=== PATIENT | male | born 1960 | race Caucasian/White ===

== ENCOUNTER → 2020-06-18 13:43 | Outpatient (CLI) | payer OTHER, SELFPAY ==
--- NOTE | 2020-06-18 | DI.MRI.S_ITS ---
PROCEDURE: MR WRIST RT WO/W CON INDICATIONS: Right wrist pain TECHNIQUE: Noncontrast coronal proton density fast spin echo and T2 fast spin echo with fat saturation; coronal 3-D gradient echo, axial T1 spin echo and T2 fast spin echo with fat saturation, axial T1 spin echo with fat saturation, sagittal T1 spin echo through the wrist. Post-contrast axial, coronal, and sagittal T1 spin echo with fat saturation through the wrist. COMPARISON: Outside Film, CR, XR WRIST 1 OR 2 VIEWS BILATERAL, 03/02/2020, 12:52. FINDINGS: Image quality: Excellent. No discrete fracture identified. There is lunate sclerosis and mild marrow edema. No articular surface collapse is seen. Widened appearance of the scapholunate interval measuring 7 mm. The scapholunate ligament is not well seen. Diffuse carpal and distal radioulnar joint degeneration. There is mild extensor digitorum, extensor carpi radialis longus and brevis tenosynovitis. Diffuse carpal synovitis. There is also distal radial ulnar joint synovitis. No discrete marrow signal changes to suggest erosion identified. Amorphous intrasubstance signal change involving the central disc of the TFCC however no discrete fluid signal intensity defect. IMPRESSION: No specific marrow signal changes to suggest erosions identified however there is diffuse carpal and distal radial ulnar joint synovitis. Mild extensor digitorum, extensor carpi radialis longus and brevis tenosynovitis Diffuse lunate sclerosis and mild marrow edema, which is suspicious for Kienbock disease. No definite articular surface collapse although continued radiographic surveillance could be performed. Dictated by: Blayne Murillo M.D. on 06/18/2020 at 16:46 Approved by: Blayne Murillo M.D. on 06/18/2020 at 16:56
--- NOTE | 2020-06-18 | DI.MRI.S_ITS ---
PROCEDURE: MR WRIST LT WO/W CON INDICATIONS: Left wrist pain TECHNIQUE: Noncontrast coronal proton density fast spin echo and T2 fast spin echo with fat saturation; coronal 3-D gradient echo, axial T1 spin echo and T2 fast spin echo with fat saturation, axial T1 spin echo with fat saturation, sagittal T1 spin echo through the wrist. Post-contrast axial, coronal, and sagittal T1 spin echo with fat saturation through the wrist. COMPARISON: [facility], MR, MR WRIST RT WO/W CON, 06/18/2020, 13:57. FINDINGS: Image quality: Excellent. No definite specific marrow changes to suggest erosion identified. There is diffuse lunate sclerosis and marrow signal change which is suspicious for Kienbock disease. Scapholunate ligament is not well seen and probably ruptured. No discrete fracture. There is borderline ulnar translocation of the carpus. There is prominent diffuse carpal and distal radioulnar joint enhancing synovitis. No definite tenosynovitis. Triangular fibrocartilage complex is not well seen and likely reflects degenerative tear. There is full-thickness loss of the distal ulnar and radial cartilage as well as the proximal lunate articular cartilage. IMPRESSION: No specific marrow signal changes to suggest erosions. Diffuse enhancing carpal and distal radioulnar joint synovitis. Lunate sclerosis, T2 hyperintensity/marrow edema which suggests Kienbock disease. Scapholunate ligament rupture Ill-defined macerated (likely degenerative) tear of the TFCC. Adjacent full-thickness areas of distal radial, ulnar and proximal carpal row chondral loss. Dictated by: Blayne Murillo M.D. on 06/18/2020 at 17:00 Approved by: Blayne Murillo M.D. on 06/18/2020 at 17:06
== END ==
PROVIDERS: PCP Nurse Practitioner; Referring Provider Internal Medicine Rheumatology; Visit Provider Internal Medicine Rheumatology
DX: M25.532 Pain in left wrist (principal); M25.531 Pain in right wrist; M65.831 Other synovitis and tenosynovitis, right forearm; S63.591A Other specified sprain of right wrist, initial encounter; M65.832 Other synovitis and tenosynovitis, left forearm; S63.391A Traumatic rupture of other ligament of right wrist, initial encounter; S63.592A Other specified sprain of left wrist, initial encounter
CPT/HCPCS: 73223; A9579

== ENCOUNTER → 2023-01-17 10:05 | Outpatient (CLI) | payer OTHER, SELFPAY ==
[2023-01-17 11:12] LABS: Add Manual Diff / Slide Review NO; Basophils Absolute Auto 100 /uL (0-100); Eosinophils Absolute Auto 100 /uL (0-450); Hematocrit 38.7 % (41-53); Lymphocytes Absolute Auto 1000 /uL (1100-4500); Lymphocytes Percent Auto 15.5 % (25-40); Mean Corpuscular HGB Conc 33.7 % (30-36); Mean Corpuscular Hemoglobin 30.8 PG (26-34); Mean Corpuscular Volume 91.3 fL (80-100); Monocytes Absolute Auto 400 /uL (0-900); Monocytes Percent Auto 6.3 % (3-14); Neutrophils Absolute Auto 4700 /uL (1500-7000); Neutrophils Percent Auto 76.2 % (50-75); Platelet Count 233 X10^3/uL (150-400); Red Blood Cell Count 4.24 X10^6/uL (4.5-5.9); Red Cell Distribution Width 13.4 % (11.6-14.8); White Blood Cell Count 6.2 X10^3/uL (4.5-11.0)
[2023-01-17 11:36] LABS: BUN Creatinine Ratio 18.7 (6-22); Blood Urea Nitrogen 17 mg/dL (9-20); Carbon Dioxide 30 mmol/L (22-32); Chloride 102 mmol/L (98-107); Estimated Glomerular Filt Rate > 60 mL/min (>60); Glucose 99 mg/dL (80-110); HEMOLYSIS < 15 (0-50); Potassium 4.5 mmol/L (3.4-5.1); Sodium 137 mmol/L (137-145)
[2023-01-17 11:47] LABS: Appearance Urine UA CLEAR; Bilirubin Urine UA NEGATIVE (NEGATIVE); Color Urine UA YELLOW; Glucose Urine UA NEGATIVE (Negative); Ketones Urine UA NEGATIVE (NEGATIVE); Leukocyte Esterase Urine UA NEGATIVE (NEGATIVE); Nitrite Urine UA NEGATIVE (Negative); Occult Blood Urine UA NEGATIVE (Negative); Protein Urine UA NEGATIVE (Negative); Specific Gravity Urine UA >=1.030 (1.000-1.035); Urobilinogen Urine UA 0.2 E.U./dL (0.2); pH Urine UA 5.5 (4.5-8.0)
[2023-01-17 11:53] LABS: Bacteria Urine None Seen; Culture Indicated Urine Cult Not Indicated; RBC Urine None Seen (0-5/HPF); Squamous Epithelial Cell Urine 0-1 /HPF (0-5/HPF); WBC Urine None Seen (0-5/HPF)
== END ==
PROVIDERS: PCP Nurse Practitioner; Referring Provider Orthopaedic Surgery; Visit Provider Orthopaedic Surgery
DX: Z01.818 Encounter for other preprocedural examination (principal); Z01.812 Encounter for preprocedural laboratory examination; R73.9 Hyperglycemia, unspecified; N39.0 Urinary tract infection, site not specified
CPT/HCPCS: 36415; 80048; 81001; 83036; 85025; 93005

== ENCOUNTER 2023-02-21 07:01 | Day surgery (SDC) | payer OTHER, SELFPAY ==
[2023-02-20 09:40] VITALS: BMI 28.5
[2023-02-21] VITALS (9 sets, daily range): BP systolic 89–136; BP diastolic 40–80; PULSE 59–68; RESP 12–18; TEMP 35.9–36.4; O2SAT 92–97; BMI 28.5
[2023-02-21] MEDS: LACTATED RINGERS 1,000 ML 42 ML IV (07:11)
--- NOTE | 2023-02-21 07:29 | DI.RAD.S_ITS ---
PROCEDURE: XR KNEE RT 1TO2V INDICATIONS: tka TECHNIQUE: 2 view(s) of the knee acquired. COMPARISON: None. FINDINGS: Bones: Patient is status post knee joint arthroplasty. Hardware components are in expected positions. Visualized bony structures are intact. Soft tissues: Overlying postoperative changes are noted. Moderate joint effusion. IMPRESSION: Status post right total knee arthroplasty without evidence for acute hardware complication. Expected postsurgical soft tissue changes. Dictated by: Gabriel Lynch M.D. on 02/21/2023 at 12:19 Approved by: Gabriel Lynch M.D. on 02/21/2023 at 12:20
--- NOTE | 2023-02-21 07:48 | PM.HP.1 ---
History of Present Illness History of Present Illness Date Patient Seen: 02/21/23 Time Patient Seen: 07:49 Chief complaint: Right TKA *OPB* Narrative: He notes ongoing right knee pain. He has pain on a daily basis it interferes with his ability to stand and walk. Notes intermittent swelling and popping in his right knee. He is failed conservative treatment. It significantly restricts his overall lifestyle and activities. [facility] Medical History (Updated 02/21/23 @ 07:54 by Liliana Durbin MD) ADHD COPD (chronic obstructive pulmonary disease) Depression Deviated nasal septum DVT (deep venous thrombosis) (~2017) Former smoker HLD (hyperlipidemia) HTN (hypertension) Insomnia Numbness Osteoarthritis Psoriatic arthritis Surgical History H/O vasectomy History of total left knee replacement (~2008) Hx of arthroscopy of right knee Hx of heart artery stent (~2017) Hx of tonsillectomy S/P foot surgery, right Social History household members: spouse Smoking Status: Former smoker alcohol intake: former Meds Home Medications and Allergies Home Medications Medication Instructions Recorded Confirmed Type aspirin 81 mg capsule 81 mg PO DAILY 02/20/23 02/20/23 History atorvastatin 10 mg tablet 10 mg PO BEDTIME 02/20/23 02/20/23 History bupropion HCl 150 mg tablet,12 hr 150 mg PO BID 02/20/23 02/20/23 History sustained-release cetirizine 10 mg tablet (Zyrtec) 10 mg PO DAILY 02/20/23 02/20/23 History citalopram 20 mg tablet 20 mg PO DAILY 02/20/23 02/20/23 History hydrocodone 10 mg-acetaminophen 2 tab PO BID 02/20/23 02/20/23 History 325 mg tablet lisinopril 10 mg tablet 10 mg PO DAILY 02/20/23 02/20/23 History naproxen 500 mg tablet 500 mg PO BID 02/20/23 02/20/23 History trazodone 100 mg tablet 200 mg PO BEDTIME 02/20/23 02/20/23 History Allergies Allergy/AdvReac Type Severity Reaction Status Date / Time morphine AdvReac Vomiting Verified 02/21/23 07:53 [From Duramorph (PF)] Review of Systems Review of Systems Narrative: Denies recent fever chills or respiratory problems. He does have a history of a DVT. Exam Narrative Exam Narrative: HEENT is benign, lungs are clear cor regular rate and rhythm, abdomen benign, right lower extremity restricted range of motion right knee healed lateral incision, slight valgus, tender to palpation along the medial and lateral aspect of the knee range of motion 0-120 degrees, positive flexion Evaristo test for lateral pain, mild to moderate patellofemoral crepitation with range of motion skin okay Objective Labs Labs: Right knee x-rays shows severe right knee tricompartment osteoarthritis there is a lesion in the lateral aspect of the tibia consistent with prior bone grafting donor site Assessment & Plan Assessment and plan (1) Osteoarthritis of right knee: Status: Acute Plan I have recommended a right total knee arthroplasty. The procedure alternatives risks benefits and complications were discussed in detail. He has a history of a DVT in the past. We will give him Eliquis for DVT prophylaxis postoperatively. Options risks benefits and complications discussed in detail. He is a former smoker and has a history of COPD. He notes his lungs have been stable recently. His pharmacy is [facility] in [place]. We discussed the need for outpatient physical therapy.
[2023-02-21] MEDS: VANCOMYCIN 1,000 MG/200 ML PIGGYBACK 200 MG IV (08:00)
[2023-02-21] MEDS: CELECOXIB 200 MG CAPSULE PO (08:00)
[2023-02-21] MEDS: ACETAMINOPHEN 325 MG TABLET 975 MG PO (08:00)
[2023-02-21] MEDS: PREGABALIN 75 MG CAPSULE PO (08:00)
--- NOTE | 2023-02-21 08:30 | PM.OP.1 ---
Operative Date/Time/Diagnoses Date of procedure: 02/21/23 Time of procedure: 08:45 Pre-op diagnosis: Right knee osteoarthritis Post-op diagnosis: same Procedure & Clinicians Procedure: Right total knee arthroplasty Same procedure as scheduled: Yes Indications: The patient has had progressively worsening right knee pain with radiographic changes consistent with arthritis. Non-operative management has failed and the patient has requested total knee replacement. The risks, benefits and alternatives to surgery were discussed with the patient prior to proceeding. Risks discussed included, but were not limited to, failure to relieve pain, stiffness, infection, nerve damage, deep venous thrombosis, pulmonary embolism, stroke, coma, heart attack, permanent paralysis and , as well as the potential need for eventual revision of the prosthetic. Surgeon: Liliana Durbin Customer Training Specialist: Kair Orozco Anesthesia Type: Spinal Operative Notes Findings: Severe right knee osteoarthritis, adequate bone Closure Type: primary Specimen(s): none sent Prosthetic devices, grafts, tissues, transplants, or devices: [facility] 2 femur size 8, size 7 tibia, + 9 poly, 35 oval patella Estimated Blood Loss (mL): 250 Blood products transfused: none Tourniquet time (min): 84 Procedure in detail: The patient was seen in the pre-operative area, where the patient identified the right knee as the operative site and this was marked with my initials. The patient received pre-operative antibiotics, and was taken to the operating room and placed on the operative table in the supine position. After satisfactory anesthesia, a full time paramedic out was performed. The right leg was encircled with a tourniquet about the proximal thigh, and the leg was prepared from the toes to the tourniquet with ChloroPrep in the usual fashion and draped through sterile drapes. The leg was elevated and exsanguinated with Eschmark bandage and the tourniquet inflated to [250] mmHg pressure. A PA was used throughout the procedure and was essential for retraction, adequate implantation of the components and intraoperative positioning. The knee was approached through an approximately 18 cm incision centered over the patella and carried into the knee through a medial parapatellar arthrotomy. A portion of the medial and lateral meniscus was resected. Soft tissue was carefully mobilized around the patella the patella was measured with a caliper. Bone was resected from the patella and the patellar height was reconstituted with up an appropriate sized patellar component. A cover was then placed on the patella. A small amount of additional medial and lateral meniscus was resected. The distal femur was cut at 5?. A [+2] cut was used. It looked like an appropriate distal femoral cut and the cut was made without difficulty. An extramedullary guide was used for the tibial cut. 10 mm was resected off the least affected side. He had very large osteophytes in the posterior tibia. They were carefully resected. The tibia was prepared. The rotation was assessed. The patient was placed in extension residual medial and lateral meniscus as well as any residual bone was carefully resected. [No] additional tibia was resected. Hemostasis was achieved especially posteriorly. Additional local was injected into the posterior capsule. The extension gap was assessed and additional releases for gap balancing were performed as necessary. It was checked with the gap sausage maker. The femoral component was trial was placed and the notch was finished. The rotation was assessed and the appropriate size femoral guide was placed on the distal femur and finishing cuts were made. There is no evidence of notching. The anterior, posterior and chamfer cuts were then made. The posterior osteophytes and soft tissues were then removed. The posterior capsule was injected with part of a mixture of 60 ml 0.25% Marcaine mixed with 20 ml Exparel for post operative pain control. The remainder of this mixture was injected into the capsule and subcutaneous tissues during cement curing. The tibial and femoral components were then placed and the knee placed through a range of motion. Range of motion was [0-130], with good stability throughout the range. The trials were then removed, and the tibia was finished. The bone was prepared with pulsatile lavage, and dried with a sponge. Cement was applied and the final prosthetics placed. Excess cement was removed during and after cement curing. A brief Betadine soak was performed. After confirming there was no extruded cement posteriorly, the final tibial insert was placed. The knee was copiously irrigated and the tourniquet deflated. Hemostasis was obtained with the Bovie cautery. The capsule was closed with interrupted nonabsorbable suture. The subcutaneous layer was closed with barbed sutures, and the skin with a running 3-0 V-Lock suture and Surgical glue. An Aquacel Ag dressing was applied and the patient was taken to recovery having tolerated the procedure well. Complications: none Post-operative Condition: stable Disposition: Acute Care Plan for aftercare: The patient will be maintained on a standard total knee replacement protocol with weight bearing as tolerated. The patient will receive Eliquis and sequential compression devices for DVT prophylaxis. The patient will be discharged home when safe for the home environment.
[2023-02-21] MEDS: CEFAZOLIN 2 GM/100 ML PREMIX 100 ML IV (09:05)
--- NOTE | 2023-02-21 09:14 | SUR.OPER ---
Supine on padded OR bed. Pillow under head, arms secured on padded armboards <90 degree abduction. Safety belt across torso. Non-operative leg secured with tape over blanket over lower leg. Operative leg secured in DeMayo/Ambrose/Nathe positioner. Foam padded brace at thigh of operative leg.
[2023-02-21] MEDS: BUPIVACAINE 0.25% (PF) 60 ML, EPINEPHrine 0.3 MG INJ (09:21)
[2023-02-21] MEDS: BUPIVACAINE LIPOSOME 266 MG/20 ML VIAL INJ (10:30)
[2023-02-21] MEDS: OXYCODONE IR 5 MG TABLET PO ×2 (12:07→12:40)
--- NOTE | 2023-02-21 14:33 | SUR.PHASEII ---
Called DINAH Brandon to clarify orders. Per Kenna, patient to start Eliquis tomorrow 02/22 and elastic wrap should stay in place for 2-3 day but may be removed intermittently for comfort. Patient and spouse notified.
--- NOTE | 2023-02-21 14:43 | PT.IIE ---
Current Diagnoses Unilateral primary osteoarthritis, right knee (02/21/23) Surgery Performed Operation Date: 02/21/23 08:45 Actual Procedures p Total Knee Arthroplasty(Right) - Liliana Durbin MD Surgical History (Last Reviewed 02/21/23 @ 07:50 by Liliana Durbin MD) H/O vasectomy History of total left knee replacement (~2008) Hx of arthroscopy of right knee Hx of heart artery stent (~2017) Hx of tonsillectomy S/P foot surgery, right Medical History (Last Updated 02/21/23 @ 07:54 by Liliana Durbin MD) ADHD COPD (chronic obstructive pulmonary disease) Depression Deviated nasal septum DVT (deep venous thrombosis) (~2017) Former smoker HLD (hyperlipidemia) HTN (hypertension) Insomnia Numbness Osteoarthritis Psoriatic arthritis Physical Therapy Inpatient Evaluation/Re-Eval M1 PT/OT-IP Prior Functional Status Start: 02/21/23 14:23 Freq: NEEDED Status: Discharge Protocol: Document 02/21/23 14:23 ES (Rec: 02/21/23 14:33 ES [id number]) Medical Review Prior Functional Status Medical History Reviewed Yes Communication Indep Mobility and Gait Indep Activities of Daily Living and IADL's Indep Social History Household Members spouse Living Arrangements House Number of Floors (Floors) One Floor Number of Stairs To Enter/Railing? 3 EDUARDO with single rail Home Environment High Toilet,Walk in Shower,Tub /Shower Home Equipment Front Wheel Walker Additional Social History Comment Has an adjustable bed if needed. No grab bars next to the toilet but it's in an alcove and can pull from the entry way to assist to stand. will be home to assist. Is working on getting OP PT scheduled. M2 PT-IP Current Condition Start: 02/21/23 14:23 Freq: NEEDED Status: Discharge Protocol: Document 02/21/23 14:23 ES (Rec: 02/21/23 14:33 ES [id number]) Physical Therapy Current Condition Current Condition Evaluation Date 02/21/23 Treatment Diagnosis S/p R TKA Onset Date 02/21/23 M3 PT-IP Subjective Start: 02/21/23 14:23 Freq: NEEDED Status: Discharge Protocol: Document 02/21/23 14:23 ES (Rec: 02/21/23 14:33 ES [id number]) Subjective Physical Therapy Visit Type Type Initial Evaluation Visit Start Time 13:52 Visit Stop Time 14:19 Total Visit Minutes 27 Physical Therapy Visit Comments Patient Comments Patient alert in bed, present. Agreeable to work with PT. Reported minimal numbness in R thigh. Therapy Pain Assessment Pain When Pain Assessed At Rest Pain Present Pain Present Pain Reported Location riight knee Intensity 5 Scale Used Numeric (0 - 10) M4 PT-IP Mobility and Gait Start: 02/21/23 14:23 Freq: NEEDED Status: Discharge Protocol: Document 02/21/23 14:23 ES (Rec: 02/21/23 14:33 ES [id number]) PT-Bed Mobility Assessment Supine to Sit Supine to Sit Standby Assistance Sit to Supine Sit to Supine Standby Assistance Scooting Scooting to Edge of Bed Independent Scooting Up and Down in Bed Independent PT-Transfer Assessment Sit to and From Stand Sit to and from Stand Independent,Use of Upper Extremities Equipment Transfer Assistive Device Gait Belt,Front Wheeled Walker Transfers Transfer Destination Bed Transfer Technique Ambulation Transfer Ability Level of Assist Independent,Use of Upper Extremities Comments Mobility Comments Cued for placing R foot forward to reduce knee flexion with sit to/from stand with good follow through the rest of session. Gait Assessment Gait Gait Assistance Required: Independent Distance (Feet) 70 Assistive Devices Assistive Device Gait Belt,Front Wheeled Walker Gait Deviations General Gait Pattern Antalgic Factors Limiting Gait Function Factors Limiting Gait Function Limited Range of Motion,Pain Comments Gait Comments Ambulated with fair R knee flexion/extension and fair heel-toe pattern on R, good step-through pattern. Cued for improving heel-toe pattern with good follow through. Patient's FWW was adjusted for his height. Stair Climbing Assessment Evaluation Level of Assist On Stairs Standby Assistance Devices Stair Climbing Assistive Devices Front Wheel Walker Technique/Endurance Stair Climbing Direction Ascend and Descend Stair Climbing Technique Step to Step Number of Steps Climbed 1 Query Text: Stair Climbing Set # Repetitions (reps) 1 Comments Stair Climbing Comments Performed stair training on step stool with FWW since stairs were not available in recovery area. Patient performed with correct sequencing with minimal cueing , good ability to weight shift onto surgical LE. PT-Balance Assessment Sitting Balance and Reactions Static Sitting Balance Ability Normal Dynamic Sitting Balance Ability Normal Standing Balance and Reactions Static Standing Balance Ability Good Dynamic Standing Balance Ability Good Device Used FWW M5 PT-IP Objective Assessments Start: 02/21/23 14:23 Freq: NEEDED Status: Discharge Protocol: Document 02/21/23 14:23 ES (Rec: 02/21/23 14:33 ES [id number]) Orientation Orientation/Cognition Level of Alertness Alert Orientation Name,Age,Birthday,Month,Date, Year,Day of Week,Place, Situation Language Function Ability No Deficits Noted Safety Awareness Understands Safety Issues Memory Description No Deficits Noted Gross Range of Motion Upper Extremity ROM Assessment Within Functional Limits Lower Extremity ROM Assessment Right Impaired Impairments R knee flexion 0-90 degrees Strength Upper Extremity Strength Assessment Within Functional Limits Lower Extremity Strength Assessment Right Impaired Comments Strength Comments Good quad activation, able to perform SLR on R. Coordination Assessment Gross Coordination Gross Coordination WNL Sensation Assessment Comments Sensation Comments Some numbness reported in R thigh, otherwise WNL. M6 PT-IP Treatment Start: 02/21/23 14:23 Freq: NEEDED Status: Discharge Protocol: Document 02/21/23 14:23 ES (Rec: 02/21/23 14:33 ES [id number]) Physical Therapy Treatment Exercises Exercises Ankle Pumps,Quad Sets,Heel Slides,Straight Leg Raises, Short Arc Quads,Passive Knee Extension Hang,Seated Knee Flexion/Extension Education Education Provided Precautions,Weight Bearing Status,Post-Op Packet,Safety M7 PT-IP Assessment and Plan Start: 02/21/23 14:23 Freq: NEEDED Status: Discharge Protocol: Document 02/21/23 14:23 ES (Rec: 02/21/23 14:33 ES [id number]) PT Summary Assessment and Plan Potential Rehabilitation Potential Excellent Status of Condition at Evaluation Stable Summary Impairments Pain,ROM,Strength,Gait Assessment Summary Patient is a 62 year old male POD 0 s/p R TKA. He demonstrated good strength and sufficient ROM for basic mobility using FWW. He was able to perform bed mobility, transfers, gait, and stairs at indep/supervision level using FWW. He demonstrated good understanding of TKA HEP. He is safe to d/c home with ' s assistance at this time; recommend OP PT for further rehab to return to his PLOF. Frequency of Treatment Frequency Of Treatment Discharge Weight Bearing Status Weight Bearing Status Weight Bear as Tolerated Recommendations To Nursing Amount of Assist Needed Standby Assistance Discharge Recommendations PT Discharge Recommendations Home with Assistance, Outpatient PT Transportation Needs at Discharge Private Vehicle
--- NOTE | 2023-02-21 16:54 | SUR.PHASEII ---
Discharge note: Patient ambulated with PT and was able to void without difficulty. Discharge instructions reviewed with patient and spouse. Patient expressed desire to discharge home. Spouse present.
== END 2023-02-21 14:31 | disposition home or self-care (01) ==
LOC: OR 07:02 → AC 11:38 → OR 13:39
PROVIDERS: PCP Nurse Practitioner; Referring Provider Family Medicine; Visit Provider Orthopaedic Surgery
PROC: 0SRC0JZ Replacement of Right Knee Joint with Synthetic Substitute, Open Approach (ICD-10-PCS; CPT 27447; principal; 2023-02-21 08:45)
DX: M17.11 Unilateral primary osteoarthritis, right knee (principal)
CPT/HCPCS: 27447; 73560; 97161; C1776; C9290; J0171; J0690; J2405; J2704